=== PATIENT | male | born 2000 | race Caucasian/White ===

== ENCOUNTER 2024-08-24 21:47 | Emergency (ER) | payer BC ==
[~2024-08-24] VITALS: Ht 160 cm; Wt 95.9 kg
[2024-08-24 22:00] VITALS: BP 104/61; PULSE 111; RESP 24; TEMP 101.6; O2SAT 98
[2024-08-24] MEDS ORDERED: ACETAMINOPHEN EXTRA STRENGTH 500 MG TAB ONE (22:28)
[2024-08-24 22:30] VITALS: BP 104/61; PULSE 111; RESP 24; O2SAT 98
[2024-08-24] MEDS: ACETAMINOPHEN EXTRA STRENGTH 500 MG TAB PO ONE (22:31)
[2024-08-24 22:41] LABS: APPEARANCE,URINE CLEAR (CLEAR); BILIRUBIN,URINE NEGATIVE (NEGATIVE); BLOOD, URINE TRACE-I (NEGATIVE); COLOR,URINE YELLOW (YELLOW); LEUKOCYTE ESTERASE ,URINE NEGATIVE (NEGATIVE); NITRITE, URINE NEGATIVE (NEGATIVE); PH,URINE 6.5 (5.0-9.0); PROTEIN,URINE 2+ (NEGATIVE); UGLUCOSE NEGATIVE (NEGATIVE); UROBILINOGEN,URINE 0.2 EU/dL (0.2 - 1)
[2024-08-24 22:48] LABS: BACTERIA,URINE OCCASSIONAL /HPF (None Seen); RBC,URINE 0-5 /HPF (0-5); SQUAMOUS EPITHELIAL CELL,UR 0-3 (FEW) /LPF (0-3 (FEW)); WBC,URINE 0-5 /HPF (0-5)
[2024-08-24 22:58] LABS: BASOPHILS % (AUTO) 0.2 % (0.0-2.0); EOSINOPHILS % (AUTO) 0.1 % (0.0-4.0); HEMATOCRIT 47.6 % (36-52); HEMOGLOBIN 16.6 g/dL (12.0-18.0); LYMPHOCYTES # (AUTO) 1.9 K/uL (2.0-11.5); LYMPHOCYTES % (AUTO) 11.6 % (20.5-51.1); MEAN CORPUSCULAR HEMOGLOBIN 31 pg (27-31); MEAN CORPUSCULAR HGB CONC 35 g/dL (33-37); MONOCYTES # (AUTO) 1.5 K/uL (0.8-1.0); MONOCYTES % (AUTO) 9.4 % (1.7-9.3); NEUTROPHILS # (AUTO) 12.9 K/uL (1.8-7.7); PLATELET COUNT (AUTO) 204 K/uL (140-450); RED BLOOD CELL COUNT(AUTO) 5.35 MIL/uL (4.20-6.10); RED CELL DISTRIBUTION WIDTH 12.6 % (11.6-13.7); WHITE BLOOD COUNT (AUTO) 16.4 K/uL (4.8-10.8)
[2024-08-24 23:08] LABS: ANION GAP 14.3 (8-16); CALCIUM 9.1 mg/dL (8.5-10.1); CARBON DIOXIDE 23.7 mmol/L (21-32); CREATININE 1.1 mg/dL (0.6-1.3)
[2024-08-24 23:13] LABS: ALBUMIN 3.6 g/dL (3.4-5.0); BILIRUBIN,DIRECT 0.2 mg/dL (0.0-0.3); TOTAL PROTEIN, SERUM 7.6 g/dL (6.4-8.2)
[2024-08-24 23:24] LABS: NEUTROPHILS % (AUTO) 78.7 % (42.2-75.2)
[2024-08-25 00:09] VITALS: TEMP 99.5
[2024-08-25] MEDS ORDERED: BISM262T5 PO (01:35)
[2024-08-25] MEDS ORDERED: ONDA-188 PO (01:35)
[2024-08-25] MEDS ORDERED: ACET500T99 PO (01:35)
[2024-08-25] MEDS ORDERED: AMOX1TAB8 PO (01:35)
== END 2024-08-25 02:04 | disposition home or self-care (01) ==
LOC: MED 21:47
DX: A09 Infectious gastroenteritis and colitis, unspecified (principal); R51.9 Headache, unspecified; Z79.899 Other long term (current) drug therapy
CPT/HCPCS: 36415; 74177; 80048; 80076; 81001; 83690; 85025; 99285; Q9967